=== PATIENT | female | born 1985 | race Caucasian/White ===

== ENCOUNTER 2017-12-07 11:30 | Emergency (ER) | END 2017-12-07 16:04 | disposition home or self-care (01) ==

== ENCOUNTER 2018-12-18 07:00 | Inpatient (IN) | payer OTHER ==
[2018-12-14 16:46] VITALS: Ht 180.3 cm; Wt 148.5 kg
[~2018-12-18] VITALS: Ht 180.3 cm; Wt 148.5 kg
[~2018-12-18 07:00] MED LIST: ALBU8.5H8 INH; GABA300C16 PO; HYDR-4012 PO; LEVO50TA89 PO; MTF1000T PO
[2018-12-20] VITALS (21 sets, daily range): BP systolic 109–171; BP diastolic 56–102; PULSE 62–93; RESP 17–36
[2018-12-20] MEDS ORDERED: LACTATED RINGER'S 1,000 ML IV SCH ×2 (06:30)
[2018-12-20] MEDS ORDERED: VANCOMYCIN 1 GM 250 ML IVPB SCH (06:30)
--- NOTE | 2018-12-20 06:52 | HPN ---
Date/Time of Note Date/Time of Note DATE: 12/20/18 TIME: 06:52 Interval H&P Admission Note Pt. seen H&P reviewed: No system changes EDA SWARTZ MD Dec 20, 2018 06:52
[2018-12-20] MEDS ORDERED: THROMBIN 5000 UNIT VIAL ONE (06:58)
[2018-12-20] MEDS ORDERED: GELATIN SIZE 100 SPONGE ONE (06:58)
[2018-12-20] MEDS ORDERED: POLYMYXIN/BACITRACIN 1L IRRIG ONE (06:58)
[2018-12-20] MEDS ORDERED: BUPIVACAINE 0.25% (MPF) 30 ML INJ ONE (06:58)
--- NOTE | 2018-12-20 07:09 | PREAC ---
Date/Time of Note Date/Time of Note DATE: 12/20/18 TIME: 07:07 Anesthesia Eval and Record Evaluation Time Pre-Procedure Interview DATE: 12/20/18 TIME: 07:07 Age 33 Sex female NPO: 8 hrs Preoperative diagnosis decompression Planned procedure decompression Past Medical History Past Medical History: Includes Endo: Diabetes Pulm: Asthma GI: Obesity Surgery & Anesthesia Issues No known issue Meds Anticoagulation: No Beta Zechariah within 24 hr: No Reason Beta Zechariah not given: Pt. not on B-Zechariah Reported Medications Albuterol Sulfate* (Proair HFA*) 8.5 Gm Hfa.aer.ad, 2 PUFF INH Q6, #1 INHALER 12/14/18 Metformin* (Glucophage*) 1,000 Mg Tablet, 1000 MG PO DAILY, #30 TAB 12/14/18 Levothyroxine Sodium* (Synthroid*) 50 Mcg Tablet, 50 MCG PO BEFORE BREAKFAST, #30 TAB 12/14/18 Gabapentin* (Gabapentin*) 300 Mg Capsule, 300 MG PO DAILY, #60 CAP 12/14/18 Hydrocodone/Acetaminophen ([place]ey 7.5-325 Tablet) 1 Each Tablet, 1 EACH PO, TAB 12/14/18 Discontinued Scripts Famotidine* (Pepcid*) 20 Mg Tablet, 20 MG PO BID for 4 Days, #30 TAB Prov:MANGO PENA PA-C 12/07/17 Hydrocodone/Acetaminophen ([place] 5-325 Tablet) 1 Each Tablet, 1 TAB PO Q6H PRN for PAIN, #7 TAB Prov:MANGO PENA PA-C 12/07/17 Current Medications Vancomycin HCl 250 ml @ 125 mls/hr PREOP IVPB Last administered on 12/20/18at 06:09; Admin Dose 125 MLS/HR; Start 12/20/18 at 06:30; Stop 12/20/18 at 20:00 Lactated Ringer's 1,000 ml @ 0 mls/hr Q0M IV ; Start 12/20/18 at 06:30; Stop 12/20/18 at 20:00 Lactated Ringer's 1,000 ml @ 0 mls/hr Q0M IV ; Start 12/20/18 at 06:30; Stop 12/20/18 at 20:00 Meds reviewed: Yes Allergies Coded Allergies: ceftriaxone (Unverified Allergy, Unknown, hives, 12/20/18) Allergies Reviewed: Yes Labs/Studies Labs Reviewed: Reviewed by anesthesiologist Blood Bank Test 12/20/18 06:13 Blood Product Summary Counts test: Negative Pre-procedure Exam Last vitals Vital Signs Date Temp Pulse Resp B/P (MAP) Pulse Ox O2 O2 Flow FiO2 Time Delivery Rate 12/20/18 97.7 91 18 137/69 98 Room Air 06:44 (91) Airway: Adequate mouth opening, Adequate thyromental dist Mallampati: Mallampati IV Teeth: Normal Lung: Normal Heart: Normal ASA Physical Status ASA physical status: 2 Emergency: None Pre-operative Attestations Prior to commencing anesthesia and surgery, the patient was re-evaluated, there was verification of: *The patient's identity *The results of appropriate recent lab work and preoperative vital signs *The above evaluation not changing prior to induction *Anesthetic plan, risk benefits, alternative and complications discussed with patient/family; questions answered; patient/family understands, accepts and wish es to proceed. JOSY GOMEZ Dec 20, 2018 07:09
[2018-12-20] MEDS ORDERED: ROCURONIUM 50 MG INJ ONE (07:12)
[2018-12-20] MEDS ORDERED: PROPOFOL 20 ML ONE (07:12)
[2018-12-20] MEDS ORDERED: MIDAZOLAM 1 MG/ML 2 ML INJ ONE (07:12)
[2018-12-20] MEDS ORDERED: FAMOTIDINE 20 MG INJ ONE (07:36)
[2018-12-20] MEDS ORDERED: ONDANSETRON 4 MG INJ ONE (07:36)
[2018-12-20] MEDS ORDERED: DEXAMETHASONE 4 MG/ML 5 ML INJ ONE (07:36)
[2018-12-20] MEDS ORDERED: SUGAMMADEX SODIUM 200 MG/2 ML VIAL IV ONE (08:46)
--- NOTE | 2018-12-20 09:19 | PAC ---
Date/Time of Note Date/Time of Note DATE: 12/20/18 TIME: 09:18 Post-Anesthesia Notes Post-Anesthesia Note Last documented vital signs Vital Signs Date Temp Pulse Resp B/P (MAP) Pulse Ox O2 O2 Flow FiO2 Time Delivery Rate 12/20/18 98 85 20 130/60 98 Room Air 06:44 Activity: WNL Respiratory function: WNL Cardiovascular function: WNL Mental status: Baseline Pain reasonably controlled: Yes Hydration appropriate: Yes Nausea/Vomiting absent: Yes CARMELINA PEREZ DO Dec 20, 2018 09:19
[2018-12-20] MEDS ORDERED: ACETAMINOPHEN 325 MG TAB PO PRN (09:30)
[2018-12-20] MEDS ORDERED: ZOLPIDEM 5 MG TAB PO PRN (09:30)
[2018-12-20] MEDS ORDERED: CEPASTAT LOZENGE MT PRN (09:30)
[2018-12-20] MEDS ORDERED: PROCHLORPERAZINE 10 MG TAB PO PRN (09:30)
[2018-12-20] MEDS ORDERED: HYDROmorphONE 1 MG/5 ML IV SYRINGE IV PRN (09:30)
[2018-12-20] MEDS ORDERED: AL HYDROX/MG HYDROX/SIMETH 30 ML CUP PO PRN (09:30)
[2018-12-20] MEDS ORDERED: BETHANECHOL 25 MG TAB PO PRN (09:30)
[2018-12-20] MEDS ORDERED: NALOXONE (0.4 MG/ML) INJ IV PRN (09:30)
[2018-12-20] MEDS ORDERED: DIPHENHYDRAMINE 50 MG CAP PO PRN (09:30)
[2018-12-20] MEDS ORDERED: DIAZEPAM 5 MG/ML SYG IM PRN (09:30)
[2018-12-20] MEDS ORDERED: HYDROmorphONE 0.2 MG/ML PCA IV SCH (09:30)
[2018-12-20] MEDS ORDERED: HYDROCODONE/APAP (5/325) TAB PO PRN ×2 (09:30)
[2018-12-20] MEDS ORDERED: TRIMETHOBENZAMIDE 100 MG/ML VIAL IM PRN (09:30)
[2018-12-20] MEDS ORDERED: NACL 0.9% 3 ML SYG IV SCH (09:30)
[2018-12-20] MEDS ORDERED: DIAZEPAM 5 MG TAB PO PRN (09:30)
--- NOTE | 2018-12-20 09:30 | SIPON ---
Date/Time of Note Date/Time of Note DATE: 12/20/18 TIME: 09:24 Operative Report Preoperative Diagnosis HNP L3-4 right Postoperative Diagnosis Same Operation/Procedure Performed Right hemilaminotomy L3 Microdiscectomy L3-4 on the right Medial facetectomy and foraminotomy L3-4 on the right Cosmetic wound closure (4 cm) Lateral localizing lumbar radiographs (2) Intraoperative nerve monitoring (1 hour and 45 minutes) Surgeon see signature line ict sales assistant Nisha EDDYA Anesthesia: general Estimated blood loss: 10 - 50 ml's Transfusion Required none Specimen DISK L3-4 right Grafts/Implants none Complications none EDA SWARTZ MD Dec 20, 2018 09:30
[2018-12-20] MEDS: HYDROmorphONE 1 MG/5 ML IV SYRINGE IV PRN ×4 (09:35→09:57)
[2018-12-20] MEDS: SOD CHLORIDE 0.45% 1,000 ML IV SCH ×2 (10:59→22:01)
[2018-12-20] MEDS ORDERED: SUCCINYLCHOLINE CHLORIDE 100 MG/5 ML SYG IV ONE (14:16)
[2018-12-20] MEDS ORDERED: LIDOCAINE 2% (SDV) 5 ML INJ IV ONE (14:16)
--- NOTE | 2018-12-20 14:41 | OPR ---
DATE OF OPERATION: 12/20/2018 PREOPERATIVE DIAGNOSES: Herniated disk L3 to L4 on the right. POSTOPERATIVE DIAGNOSES: Herniated disk L3 to L4 on the right. OPERATION PROCEDURES PERFORMED: 1. Right hemilaminotomy L3. 2. Microdiskectomy L3 to L4 on the right. 3. Medial facetectomy and foraminotomy, L3 to L4 on the right. 4. Cosmetic wound closure (4 cm). 5. Lateral localized lumbar radiographs (2). 6. Intraoperative nerve monitoring (1 hour and 45 minutes) SURGEON: Anthony Barakat MD BLACK STUDIES PROFESSOR: PRISCILLA Wills ANESTHESIA: General endotracheal. ANESTHESIOLOGIST: Bryan Valenzuela DO ESTIMATED BLOOD LOSS: 20 mL - none replaced. DRAINS: Two medium Hemovac drains employed. COMPLICATIONS: None. PERTINENT HISTORY AND PHYSICAL: This is a 33-year-old female who sustained injury to her back in the course of employment on 10/19/2017. She has had extensive care since that time, has remained sympto matic with back and right leg pain which has been unrelieved by conservative management. She has und ergone a number of diagnostic studies including an MRI of the lumbar spine, which demonstrated hernia tion of the L3 to L4 disk on the right and elective diagnostic testing which revealed an active L4 to L5 radiculopathy on the right. Treatment options were discussed with the patient. She elected to p roceed with surgery. OPERATIVE FINDINGS AT SURGERY: Small to moderate right-sided paracentral herniation of the L3 to L4 disk was confirmed with some extruded disk material which was through the annulus and posterior longi tudinal ligament and underneath the L4 nerve root. The baseline intraoperative nerve monitoring reve aled a decrease in the right L3 and L4 potentials of 40%. These returned to normal at the completion of the surgery. OPERATIVE PROCEDURE IN DETAILS: With the patient in supine position after satisfactory induction of general endotracheal anesthesia by Dr. Valenzuela, the patient was turned to the prone kneeling positio n on the [place] frame. All pressure points were carefully padded. Back was prepped and draped in usual sterile fashion. Athrombic pumps were applied to the legs below the knees to prevent venous st asis during and after procedure. Two spinal needles were placed next to what was felt to be the L3 a nd L4 spinous processes. Lateral roentgenogram was taken to confirm anatomic localization. A 4 cm i ncision was then carried midline over the spinous process of L3 after skin was infiltrated with 0.25% Marcaine without epinephrine for postoperative analgesia. Superficial retractors were placed and he mostasis was secured with electrocautery. The fascia was incised in midline with a hot knife and uni lateral subperiosteal dissection was carried out at L3 on the right. Deep retractors were placed and deep hemostasis was secured with electrocautery. A right hemilaminotomy L3 was then carried out usi ng Leksell rongeur, Kerrison punches and curettes. A second intraoperative radiograph was taken with deep retractor at what was felt to be the L4 interspace and this was confirmed from the second x-ray . A right hemilaminotomy L3 was then carried out using Leksell rongeur, Kerrison punches and curette s. Ligamentum flavum was incised with sharp dissection. The operating microscope was then moved int o place. A medial facetectomy and foraminotomy was accomplished using small hand osteotome, mallet, Kerrison punches and curettes. The L4 root was then mobilized medially and protected with Jose Eduardo flores root retractor using microdissection technique. This revealed a herniation of the L3 to L4 disk on the right. A 15-blade knife used to cut a rectangular window in the annulus and posterior longit udinal ligament and multiple degenerative disk fragments were harvested with pituitary rongeurs and s ent to laboratory for pathologic study. Additional fragments were harvested using Taye curettes. A thorough search of the floor canal was made with an arthroscopic probe. No additional fragments w ere encountered. The epidural hemostasis was secured with bipolar electrocautery on low setting. e anesthesiologist then asked to perform a Valsalva maneuver at 40 mmHg and no spinal fluid leak was noted. The wound was then closed in layers over 2 medium Hemovac drains, one below the fascia, one a jairo the fascia using #1 Vicryl [id number] approximating sutures in deep paralumbar musculature and deep fascia of back, 2-0 Vicryl suture for subcutaneous tissue and a 4-0 Vicryl subcuticular cosm etic closing suture on the skin. Dermabond and sterile compressive dressings were applied. The darling ent having tolerated procedure well, was then turned to the supine position onto her bed and extubate d by Dr. Valenzuela. She was transported to the recovery room in satisfactory condition. At the concl usion of procedure, sponge, instrument and needle counts were all correct. NEED FOR COGNOS BI ADMINISTRATOR: During this spinal surgical procedure, my payroll assistant was used to retract and protect the spinal nerves and dural sac. My payroll assistant also employed the suction catheters to audie daphne blood from the surgical field to improve visualization of the neural structures. The payroll assistant was medically necessary to facilitate the completion of the surgery in a safe and expeditious manner. [facility] [place] regulations, as well as hospital bylaws, preclude the use of non-licensed health care personnel such as operating room technicians, to perform these functions. Throughout the procedure, neural monitoring was carried out by Hand[employer]ions including EMG, SSEP a nd MEP monitoring of the L3, L4, L5 and S1 nerve roots bilaterally along with spinal cord potentials. These were interpreted in real time by Dr. Seb Leggett. Dictated By: ANTHONY HITCHCOCK/CHANO Conf#: [id number] DID#: [id number] CC: NOEMY LLAMAS DO;*End*
[2018-12-20] MEDS: ONDANSETRON 4 MG INJ IV PRN ×2 (14:42→21:45)
[2018-12-20] MEDS: VANCOMYCIN 1 GM (PMX) 250 ML IVPB SCH (18:00)
[2018-12-20] MEDS: RANITIDINE 150 MG TAB PO SCH (20:56)
--- NOTE | 2018-12-21 00:04 | PN ---
Date/Time of Note Date/Time of Note DATE: 12/20/18 TIME: 23:58 Assessment/Plan VTE Prophylaxis Risk score (from Nsg)>0 risk: 3 SCD applied (from Ns): Yes Pharmacological prophylaxis: NA/contraindicated Pharm contraindication: low risk/ambulating Lines/Catheters IV Catheter Type (from Nrsg): Peripheral IV Assessment/Plan Hospital Course Stable post op per Dr. Barakat's orders Assessment/Plan IV fluids, Zofran for nausea Hold Metformin for tonight. If she has an appetite tomorrow, resume Metformin and Synthroid. Results 24hrs Laboratory Tests Test 12/20/18 05:58 Bedside Glucose 136 Subjective 24 Hr Interval Summary Free Text/Dictation Stable post Op spine surgery with Dr. Barakat. Having some nausea and emesis, but no fever or chills. Much less right leg pain. Just has back pain. Stable post op. Exam/Review of Systems Exam Vitals Vital Signs Date Temp Pulse Resp B/P (MAP) Pulse Ox O2 O2 Flow FiO2 Time Delivery Rate 12/20/18 98.0 62 20 127/61 99 19:40 (83) 12/20/18 Room Air 16:00 Constitutional: alert, oriented, obese Psych: nl mood/affect Head: normocephalic, atraumatic Eyes: nl conjunctiva ENMT: nl external ears & nose, nl lips & teeth Neck: supple, non-tender Respiratory: clear to auscultation, normal air movement Cardiovascular: regular rate and rhythm, nl pulses Gastrointestinal: soft, non-tender Extremities: normal pulses Neurological: nl mental status, nl speech Results Results 24hrs Laboratory Tests Test 12/20/18 05:58 Bedside Glucose 136 Medications Medication Current Medications Sodium Chloride 1,000 ml @ 100 mls/hr Q10H IV Last administered on 12/20/18at 22:01; Admin Dose 100 MLS/HR; Start 12/20/18 at 09:30 Acetaminophen/ Hydrocodone Bitart ([place]ankinson (5/325)) 1 tab Q4H PRN PO .PAIN 1-5; Start 12/20/18 at 09:30; Status Hold Acetaminophen/ Hydrocodone Bitart ([place]inson (5/325)) 2 tab Q4H PRN PO .PAIN 6-10; Start 12/20/18 at 09:30; Status Hold Vancomycin HCl 250 ml @ 125 mls/hr Q12H IVPB Last administered on 12/20/18at 18:00; Admin Dose 125 MLS/HR; Start 12/20/18 at 18:00; Stop 12/21/18 at 07:59 Zolpidem Tartrate (Ambien) 5 mg HS PRN PO .INSOMNIA; Start 12/20/18 at 09:30 Prochlorperazine (Compazine) 10 mg Q4H PRN PO NAUSEA/VOMITING; Start 12/20/18 at 09:30 Trimethobenzamide HCl (Tigan) 200 mg Q4H PRN IM NAUSEA/VOMITING; Start 12/20/18 at 09:30 Ondansetron HCl (Zofran Inj) 4 mg Q6H PRN IV NAUSEA/VOMITING Last administered on 12/20/18at 21:45; Admin Dose 4 MG; Start 12/20/18 at 09:30 Al Hydrox/Mg Hydrox/Simethicone (Mag-Al Plus) 15 ml Q4H PRN PO .CONSTIPATION; Start 12/20/18 at 09:30 Docusate Sodium (Colace) 100 mg BID PO ; Start 12/21/18 at 09:00 Acetaminophen (Tylenol Tab) 650 mg Q4H PRN PO TEMP GREATER THAN 101F OR MCKEON; Start 12/20/18 at 09:30 Ascorbic Acid (Vitamin C) 1,000 mg BID PO ; Start 12/21/18 at 09:00 Ferrous Sulfate (Ferrous Sulfate (Ec)) 325 mg TID PO ; Start 12/21/18 at 09:00 Ranitidine HCl (Zantac) 150 mg BID PO Last administered on 12/20/18at 20:56; Admin Dose 150 MG; Start 12/20/18 at 21:00 Diazepam (Valium) 5 mg Q4H PRN PO .MUSCLE SPASM; Start 12/20/18 at 09:30 Diazepam (Valium) 5 mg Q4H PRN IM .MUSCLE SPASM; Start 12/20/18 at 09:30 Phenol (Cepastat Lozenge) 1 lozenge PRN PRN MT .SORE THROAT; Start 12/20/18 at 09:30 Bethanechol Chloride (Urecholine) 25 mg PRN PRN PO .UNABLE TO VOID; Start 12/20/18 at 09:30 Diphenhydramine HCl (Benadryl) 50 mg Q6H PRN PO .PRURITUS; Start 12/20/18 at 09:30 IV Flush (NS 3 ml) 3 ml PER PROTOCOL IV ; Start 12/20/18 at 09:30 Hydromorphone HCl (Dilaudid PHYSICIAN SCIENTIST) Q4PCA IV Last administered on 12/20/18at 10:22; Admin Dose 0.2 MG; Start 12/20/18 at 09:30 Naloxone HCl (Narcan) 0.2 mg Q2M PRN IV RR 8 BREATHS/MIN OR LESS; Start 12/20/18 at 09:30 Metformin HCl (Glucophage) 1,000 mg AC DINNER PO ; Start 12/21/18 at 17:25 Levothyroxine Sodium (Synthroid) 100 mcg DAILY@06 PO ; Start 12/21/18 at 06:00 NOEMY LLAMAS MD Dec 21, 2018 00:04
[2018-12-21 00:15] VITALS: BP 110/59; PULSE 62; RESP 20
[2018-12-21] MEDS: VANCOMYCIN 1 GM (PMX) 250 ML IVPB SCH (05:42)
[2018-12-21] MEDS ORDERED: LEVOTHYROXINE 100 MCG TAB PO SCH (06:00)
--- NOTE | 2018-12-21 07:15 | PN ---
Date/Time of Note Date/Time of Note DATE: 12/21/18 TIME: 07:12 Assessment/Plan Lines/Catheters IV Catheter Type (from Nrs): Peripheral IV Subjective 24 Hr Interval Summary Patient is postop day #1 from right hemilaminotomy L3 with microdiskectomy L3 to L4 on the right. She has had improvement in her preoperative symptoms. Neurovascular structures are intact distally. Vital signs are stable. Hemoglobin this morning was 10.3. Hemovac drain overnight was 5cc overnight and this was discontinued this morning. Incision is healing well. She was up yesterday ambulating with physical therapy in the hallway. She may be discharged later today if she is cleared by physical therapy and internal medicine. Discharge instructions reviewed with patient. Exam/Review of Systems Vital Signs Vitals Vital Signs Date Temp Pulse Resp B/P (MAP) Pulse Ox O2 O2 Flow FiO2 Time Delivery Rate 12/21/18 18 05:49 12/21/18 98.0 62 110/59 100 Room Air 00:15 (76) Intake and Output 12/20/18 12/20/18 12/21/18 1515:00 23:00 07:00 IntakeIntake Total 1000 ml 2050 ml 700 ml OutputOutput Total 120 ml 620 ml 5 ml BalanceBalance 880 ml 1430 ml 695 ml Results Result Diagram: 12/21/18 0446 12/21/18 0446 MERCY JENSEN Dec 21, 2018 07:15
[2018-12-21 07:47] VITALS: BP 127/68; PULSE 42; RESP 18
[2018-12-21] MEDS ORDERED: BETHANECHOL 25 MG TAB PO PRN (08:00)
[2018-12-21] MEDS: RANITIDINE 150 MG TAB PO SCH (08:45)
[2018-12-21] MEDS: SOD CHLORIDE 0.45% 1,000 ML IV SCH (08:46)
[2018-12-21] MEDS ORDERED: FERROUS SULFATE (EC) 325 MG TAB PO SCH (09:00)
[2018-12-21] MEDS ORDERED: ASCORBIC ACID 500 MG TAB PO SCH (09:00)
[2018-12-21] MEDS ORDERED: DOCUSATE SODIUM 100 MG CAP PO SCH (09:00)
[2018-12-21] MEDS ORDERED: metFORMIN 500 MG TAB PO SCH (17:25)
== END 2018-12-21 14:20 | disposition home or self-care (01) | DRG 520 ==
LOC: EDSTATUS 07:00 → REC 12-20 05:27 → MS1 12-20 10:40
PROVIDERS: ADMIT Orthopaedic Surgery; ATTEND Orthopaedic Surgery
PROC: 0SB20ZZ Excision of Lumbar Vertebral Disc, Open Approach (ICD-10-PCS; principal; 2018-12-20 07:00)
DX: M51.16 Intervertebral disc disorders with radiculopathy, lumbar region (principal); R11.2 Nausea with vomiting, unspecified; E11.9 Type 2 diabetes mellitus without complications; E03.9 Hypothyroidism, unspecified
CPT/HCPCS: 72020; 80048; 82962; 85014; 85018; 86850; 86900; 86901; 86920; 88304; 97110; 97116; 97161; 97530; J1100; J1170; J2250; J2405; J3010; J3370